=== PATIENT | male | born 1955 | race Caucasian/White ===

== ENCOUNTER → 2017-04-30 09:41 | Outpatient (CLI) | payer BC | END | disposition home or self-care (01) | LOC: D.ECHO 09:41 | DX: R06.00 Dyspnea, unspecified (principal) ==

== ENCOUNTER 2017-10-22 06:53 | Outpatient (CLI) | payer BC ==
--- NOTE | ~2017-10-22 | HEMODYNAMI ---
PATIENT:BRUNO BENZ MEDICAL RECORD: [id number] : 59 LOCATION:[facility] ADMISSION DATE: 10/22/17 Generatedon:10/22/20178:18 Patient name: BRUNO BENZ Patient #: [id number] SSN: : 1955 Date of study: 10/22/2017 Page: Of Hemodynamic Procedure Report Patient Data Patient Demographics Procedure consent was obtained First Name: BRUNO Gender: Male Last Name: TUYET : 1955 [facility] Initial: KRANTHI Age: 61 year(s) Patient #: [id number] Race: Unknown Additional ID: [id number] Contact details Address: [address] State: [place] City: [place] Zip code: [address] Past Medical History Allergies: No known allergies Admission Admission Data Admission Date: 10/22/2017 Admission Time: 6:53 Procedure Procedure Types Cath Procedure Diagnostic Procedure LHC LHC w/Coronaries Procedure Description Procedure Date Procedure Date: 10/22/2017 Procedure Start Time: 8:03 Procedure End Time: 8:17 Procedure Staff Name Function Henri Daugherty MD Performing Physician Valerie Leyva RT Monitor German Beebe RT Scrub Soheila Levy RN Monitor Procedure Data Cath Procedure Fluoroscopy Diagnostic fluoroscopy Total fluoroscopy Time: 1.8 time: 1.8 min min Diagnostic fluoroscopy Total fluoroscopy dose: dose: 131.29 mGy 131.29 mGy Contrast Material Contrast Material Type Amount (ml) Isovue 300 43 Entry Location Entry Primary Successful Side Size Upsize Upsize Entry Closure Cardona ccessful Closure Location (Fr) 1 (Fr) 2 (Fr) Remarks Device Remarks Radial Right 6 Fr Mechanical artery Short Compression Estimated blood loss: 5 ml Diagnostic catheters Device Type Used For End Catheter Placement DIAGNOSTIC [place] 110cm 5 LV Angiography Fr catheter ([id number]) DIAGNOSTIC [place] 110cm 5 Left Coronary Fr catheter (535684) Angiography DIAGNOSTIC [place] 110cm 5 Right Coronary Fr catheter ([id number]) Angiography Procedure Complications No complications Procedure Medications Medication Administration Route Dosage Oxygen NC 2 l/min Lidocaine 2% added to field 20 Heparin Flush Bag added to field 2 bags (1000units/500ml NS) 0.9% NaCl I.V. 100 ml/hr Radial Cocktail I.A. 1 syringe (Verapomil 2mg/Nitro 400mcg/Heparin 1500units) Versed I.V. 2 mg Fentanyl I.V. 50 mcg Hemodynamics Rest Heart Rate: 78 (bpm) Pressure Samples Time Site Value (mmHg) Purpose Heart Use Rate(bpm) 8:07 LV 159/36,15 EDP 98 8:07 LV 158/-8,14 Snapshot 24 Gradients Valve Time Site Site Mean SEP/DFP Peak To Heart Use 1 2 (mmHg) (sec/min) Peak Rate (mmHg) (bpm) Aortic 8:08 LV AO 84 Snapshots Pre Cath Intra NCS Post Cath Vital Signs Time Heart Resp SPO2 etCO2 NIBP (mmHg) Rhythm Pain Sedation Rate (ipm) (%) (mmHg) Status Level (bpm) 7:52:49 88 15 99 0 171/108(147) NSR 0 (11) 10(A) , No pain 7:57:30 85 18 100 35.5 152/91(130) NSR 0 (11) 10(A) , No pain 8:01:56 83 16 100 0 139/91(109) NSR 0 (11) 10(A) , No pain 8:06:24 90 14 100 36.2 122/82(106) NSR 0 (11) 10(A) , No pain 8:10:51 81 14 98 35.5 129/77(99) NSR 0 (11) 10(A) , No pain 8:15:11 92 15 99 38.5 132/91(109) NSR 0 (11) 10(A) , No pain Medications Time Medication Route Dose Verified Delivered Reason Notes E ffectiveness by by 8:00:18 Oxygen NC 2 l/min Henri Buffie used for Dat Levy RN procedure 8:00:26 Lidocaine 2% added 20ml Henri Henri for local to vial Dat Daugherty MD anesthetic field 8:00:32 Heparin Flush added 2 bags Henri Henri used for Bag to Dat Daugherty MD procedure (1000units/500ml field DANG NS) 8:00:43 0.9% NaCl I.V. 100 Henri Buffie Per ml/hr Dat Levy RN physician 8:01:19 Versed I.V. 2 mg Henri Buffie for sedation Dat Levy RN, MD 8:01:25 Fentanyl I.V. 50 mcg Henri Buffie for sedation Dat Levy RN, MD 8:05:11 Radial Cocktail I.A. 1 Henri Henri for (Verapomil syringe Dat Daugherty MD vasodilation 2mg/Nitro MD 400mcg/Heparin 1500units) Procedure Log Time Note 7:35:16 German Beebe RT(R) (CV) sent for patient. Start room use. 7:45:23 Time tracking: Regular hours 7:45:27 Plan of Care:Hemodynamics will remain stable., Cardiac rhythm will remain stable., Comfort level will be maintained., Respiratory function will remain adequate., Patient/ family verbilizes understanding of procedure., Procedure tolerated without complication., Recovers from procedure without complications.. 7:45:33 Patient received from Pre/Post Procedure Room to [facility]3] 3 Alert and oriented. Tansferred to table in Supine position. 7:45:34 Warm blankets applied, and pradeep hugger turned on for patient comfort. 7:45:35 Correct patient and procedure confirmed by team. 7:45:36 Signed procedure consent form obtained from patient. 7:45:37 ECG and BP/O2 sat monitors applied to patient. 7:45:37 Full Disclosure recording started 7:51:17 Vital chart was started 7:51:48 Rhythm: sinus rhythm 7:57:20 H&P Date Dictated: 10/21/2017 Within 30 days and on chart., H&P Addendum completed by physician on day of procedure. (MUST COMPLETE FOR ALL OUTPATIENTS). 7:57:21 Pre-procedure instructions explained to patient. 7:57:22 Pre-op teaching completed and patient verbalized understanding. 7:57:23 Family in waiting room. 7:57:25 Patient NPO since Midnight. 7:57:48 Patient allergic to No known allergies 7:57:54 Is the patient allergic to Iodine/contrast media? No. 7:57:56 Is patient on blood thinner?Yes 7:58:05 Patient diabetic? No. 7:58:08 Previous problem with sedation/anesthesia? No ? 7:58:10 Snore? Yes 7:58:11 Sleep apnea? No 7:58:12 Deviated septum? No 7:58:12 Opens mouth fully? Yes 7:58:13 Sticks out tongue? Yes 7:58:15 Airway obstruction? No ? 7:58:18 Dentures? No ? 7:58:24 Pre procedure: right dorsailis pedis pulse 2+ Normal; easily identifiable; not easily obliterated 7:58:26 Modified Sukhi's test Ulnar < 7 seconds 7:58:28 Patient pain scale 0/10 ?. 7:58:38 IV patent on arrival in left hand with 0.9% NaCl at [facility]. 7:58:42 Lab results completed and on chart. 7:58:44 Right Radial & Right Groin area was prepped with chlora-prep and draped in sterile fashion 7:58:45 Alarms reviewed by R. N. 7:58:45 Sharps counted by scrub and verified by R.N. 7:58:50 Use device set Radial Dx or PCI 7:58:51 ACIST Syringe (84243) opened to sterile field. 7:58:51 Medline Cath Pack ([id number]) opened to sterile field. 7:58:52 Bag Decanter (2002S) opened to sterile field. 7:58:53 SHEATH 6FR Slender ([id number]) opened to sterile field. 7:58:53 DIAGNOSTIC WIRE .035 260cm J wire (592020) opened to sterile field. 7:58:54 ACIST Hand Control (53263) opened to sterile field. 7:58:54 ACIST Manifold (31362) opened to sterile field. 7:59:09 Final Timeout: patient, procedure, and site verified with staff and physician. All members of the team are in agreement. 7:59:11 Right Radial site verified by team. 7:59:13 Physical assessment completed. ASA score P 2 - A patient with mild systemic disease as per Henri Daugherty MD. 7:59:16 Sedation plan: IV Moderate Sedation Medication:Versed, Fentanyl 7:59:43 Baseline sample Acquired. 8:00:18 Oxygen 2 l/min NC was administered by Soheila Levy RN; used for procedure; 8:00:26 Lidocaine 2% 20ml vial added to field was administered by Henri Daugherty MD; for local anesthetic; 8:00:32 Heparin Flush Bag (1000units/500ml NS) 2 bags added to field was administered by Henri Daugherty MD; used for procedure; 8:00:43 0.9% NaCl 100 ml/hr I.V. was administered by Soheila Levy RN; Per physician; 8:01:19 Versed 2 mg I.V. was administered by Soheila Levy RN; for sedation; 8:01:25 Fentanyl 50 mcg I.V. was administered by Soheila Levy RN; for sedation; 8:02:51 Zero performed for pressure channel P1 8:02:56 Procedure started. 8:03:02 Local anesthetic to right radial artery with Lidocaine 2% by Henri Daugherty MD.INITIAL ACCESS ONLY 8:04:27 A 6 Fr Short sheath was inserted into the Right Radial artery 8:05:11 Radial Cocktail (Verapomil 2mg/Nitro 400mcg/Heparin 1500units) 1 syringe I.A. was administered by Henri Daugherty MD; for vasodilation; 8:06:37 A DIAGNOSTIC [place] 110cm 5 Fr catheter ([id number]) was advanced over the wire and used for LV Angiography. 8:07:44 LV gram done using [place] 8:07:45 LV hemodynamics recorded. 8:07:49 Injector settings: Ml/sec: 12, Volume: 8, 8:09:01 A DIAGNOSTIC [place] 110cm 5 Fr catheter ([id number]) was advanced over the wire and used for Left Coronary Angiography. 8:11:21 A DIAGNOSTIC [place] 110cm 5 Fr catheter (357019) was advanced over the wire and used for Right Coronary Angiography. 8:13:42 Catheter removed. 8:13:52 Sheath removed intact; hemostasis achieved with Mechanical Compression to the Right Radial artery. 8:13:54 Procedure ended.(Physican Out) 8:14:11 Fluoroscopy time 01.80 minutes. 8:14:18 Fluoroscopy dose: 131.29 mGy 8:14:18 Flurop Dose total: 131.29 8:15:03 Contrast amount:Isovue 300 43ml. 8:15:05 Sharps counted by scrub and verified by R.N. 8:15:07 TR band inflated with 12cc of air. 8:15:08 Insertion/operative site no bleeding no hematoma. 8:15:11 Post right radial artery:stable, clean and dry 8:15:13 Post Procedure Pulses reassessed and unchanged 8:15:21 Post-procedure physical assessment completed. ASA score P 2 - A patient with mild systemic disease as per Henri Daugherty MD. 8:15:23 Post procedure rhythm: unchanged. 8:15:26 Estimated blood loss: 5 ml 8:15:27 Post procedure instruction explained to patient.Patient verbalizes understanding. 8:15:30 Patient needs reinforcement of post procedure teaching. 8:15:45 Procedure Complication : No complications 8:15:47 See physician's report for complete and final results. 8:16:00 TR BAND Standard ([id number]) opened to sterile field. 8:16:25 Procedure and supply charges have been captured, reviewed, submitted and are correct. 8:17:24 Vital chart was stopped 8:17:26 Report given to Pre/Post Procedure Room. 8:17:29 Patient transfered to Pre/Post Procedure Room with Stretcher. 8:17:36 Procedure ended. 8:17:36 Full Disclosure recording stopped 8:17:40 End room use (Document Last) Device Usage Item Name Manufacture Quantity Catalog Hospital Part Current Minimal Lot# / Number Charge Number Stock Stock Serial# Code ACIST Acist 1 [id number] 209389 704530 [id number] 20 Syringe Medical (67756) Systems Inc Medline Cath Cardinal 1 [id number] 164548 91995 730957 5 Pack Health ([id number]) Bag Decanter Microtek 1 2001S 079594 83182 641137 5 () Medical Inc. SHEATH 6FR Terumo 1 [id number] 275261 540782 264344 40 Slender ([id number]) DIAGNOSTIC St Tr 1 593972 308062 101174 598733 30 WIRE .035 260cm J wire (226658) ACIST Hand Acist 1 58169 117324 104616 960951 5 Control Medical (42883) Systems Inc ACIST Acist 1 41596 198431 101467 828007 5 Manifold Medical (18858) Systems Inc DIAGNOSTIC [place] 1 40-5013 432215 383934 785883 5 [place] 110cm 5 Fr catheter (460732) TR BAND Terumo 1 [id number] 203800 155267 229924 40 Standard ([id number]) Signature Audit [place] Stage Time Signature Unsigned Intra-Procedure 10/22/2017 Valerie 8:17:54 AM Counts RT(R) Signatures Monitor : Valerie Signature : Counts RT Date : Time : Monitor : Soheila Levy RN Signature : Date : Time : [address] [place] [address]
[2017-10-22 07:11] VITALS: BP 175/103; BMI 31.1
[2017-10-22 07:18] LABS: BASOPHILS 0.5 % (0-2); EOSINOPHILS 5.8 % (0-7); HEMATOCRIT 44.9 % (42.0-54.0); HEMOGLOBIN 15.5 g/dL (13.5-17.5); IMMATURE GRANULOCYTES 0.3 % (0-5); LYMPHOCYTES 31.7 % (15-50); MCHC 34.5 g/dL (31.0-37.0); MEAN PLATELET VOLUME 10.4 fL (7.4-10.4); MONOCYTES 7.8 % (2-11); NEUTROPHILS 53.9 % (40-80); PLATELET COUNT 225 10x3/uL (130-400); RBC 5.16 10x6/uL (4.20-6.10); WBC 7.8 10x3/uL (4.8-10.8)
[2017-10-22] MEDS ORDERED: PLAVIX75 MG PO ×2 (07:19→10:37)
[2017-10-22] MEDS ORDERED: PRILOSEC2.5 MG PO (07:21)
[2017-10-22] MEDS ORDERED: LISINOPRIL-HCTZ1 T11 PO (07:25)
[2017-10-22 07:33] LABS: CALC OSMOLALITY 281 mosm/kg (275-300); CALCIUM 9.4 mg/dL (8.5-10.1); CARBON DIOXIDE 26.6 mmol/L (21.0-32.0); CHLORIDE - SERUM 100 mmol/L (98-107); GLUCOSE 151 mg/dL (74-106); POTASSIUM - SERUM 3.4 mmol/L (3.5-5.1); SODIUM 138 mmol/L (136-145); UREA NITROGEN 22 mg/dL (7-18); eGFR NON AFRICAN AMERICAN 81 mL/min (90-120)
[2017-10-22] MEDS ORDERED: LIPITOR80 MG PO (10:36)
[2017-10-22] MEDS ORDERED: PROTONIX40 MG PO (10:37)
== END 2017-10-22 10:55 | disposition home or self-care (01) ==
LOC: D.CATH 06:53
PROVIDERS: Internal Medicine Cardiovascular Disease
DX: I20.0 Unstable angina (principal); R00.2 Palpitations; R07.9 Chest pain, unspecified; I10 Essential (primary) hypertension; Z01.812 Encounter for preprocedural laboratory examination